=== PATIENT | female | born 2005 | race Two or more races ===

== ENCOUNTER 2023-12-31 08:14 | Outpatient (CLI) | payer OTHER | END 2023-12-31 08:19 | disposition home or self-care (01) | LOC: SONOGRAMA 08:14 | PROVIDERS: ATTEND Surgery | DX: R10.10 Upper abdominal pain, unspecified (principal) ==

== ENCOUNTER 2024-01-01 23:15 | Inpatient (IN) | payer OTHER ==
[~2024-01-01] VITALS: Ht 170.2 cm; Wt 58.1 kg
[2024-01-02] MEDS ORDERED: RINGERS SOLUTION,LACTATED 1,000 ML IV STA (00:42)
[2024-01-02] MEDS ORDERED: HYOSCYAMINE SULFATE 0.125 MG TAB.SUBL SL STA ×2 (00:43→05:49)
[2024-01-02] MEDS ORDERED: ONDANSETRON HCL 2 MG/ML VIAL IV STA (00:44)
[2024-01-02] MEDS ORDERED: FAMOtidine 10 MG/ML (4ML VIAL) IV PUSH STA (00:46)
[2024-01-02] MEDS ORDERED: PROMETHAZINE HCL 25 MG/ML AMPUL IM STA (00:47)
[2024-01-02] MEDS ORDERED: MEPERIDINE HCL 25 MG/ML AMPUL IM STA (00:47)
[2024-01-02 01:18] LABS: HEMATOCRIT 38.4 % (36.0-45.00); HEMOGLOBIN 12.5 g/dL (12.0-15.00); MEAN CORPUSCULAR HEMOGLOBIN 26.1 pg (27.00-32.0); MEAN CORPUSCULAR HGB CONC 32.6 g/dl (32.0-36.0); PLATELET COUNT 264 K/uL (150-450); RED CELL DISTRIBUTION WIDTH 14.2 % (11.5-14.5)
[2024-01-02 01:46] LABS: CALCIUM 10.1 mg/dL (8.5-10.1); CREATININE SERUM 0.74 mg/dL (0.55-1.02); GFR 100.05; POTASSIUM 3.65 mEq/L (3.5-5.1)
[2024-01-02] MEDS ORDERED: MEPERIDINE HCL/PF 50 MG/ML VIAL IM STA (06:52)
[2024-01-02] MEDS ORDERED: PROMETHAZINE HCL 50 MG/ML AMPUL IM STA (06:53)
[2024-01-02] MEDS ORDERED: PANTOPRAZOLE SODIUM 40 MG/VIAL VIAL IV SCH (09:58)
[2024-01-02] MEDS ORDERED: ONDANSETRON HCL 2 MG/ML VIAL IV PRN (10:00)
[2024-01-02] MEDS ORDERED: RINGERS SOLUTION,LACTATED 1,000 ML IV SCH (10:00)
[2024-01-02] MEDS ORDERED: MIDAZOLAM HCL 2 MG/2 ML VIAL IV STA (12:09)
[2024-01-02] MEDS ORDERED: DIPHENHYDRAMINE HCL 50 MG/ML VIAL 1ML IV STA (12:09)
[2024-01-02] MEDS ORDERED: fentaNYL CITRATE 50 MCG/ML AMPUL IV STA (12:10)
[2024-01-02] MEDS ORDERED: MAGNESIUM HYDROXIDE PO SCH (18:00)
[2024-01-02] MEDS ORDERED: LIDOCAINE PO SCH (18:00)
[2024-01-02] MEDS ORDERED: SIMETHICONE PO SCH (18:00)
[2024-01-02] MEDS ORDERED: ALUMINUM HYDROXIDE PO SCH (18:00)
[2024-01-03] MEDS ORDERED: MORPHINE SULFATE 4 MG/ML VIAL IV PRN (02:15)
[2024-01-03] MEDS ORDERED: MORPHINE SULFATE 4 MG/ML CARTRIDGE IV PRN (09:45)
[2024-01-03] MEDS ORDERED: MAG HYDROX/ALUMINUM HYD/SIMETH 30 ML BLIST.PACK PO ONE (14:59)
[2024-01-03] MEDS ORDERED: DEXTROSE 10 % IN WATER 500 ML IV SCH (15:15)
[2024-01-03] MEDS ORDERED: AA 4.25%/CAL/LYTES/DEXT 5% 1,000 ML PERIFERAL SCH (17:00)
[2024-01-03] MEDS ORDERED: LIDOCAINE HCL 20 MG/ML BLIST.PACK MM SCH (19:00)
[2024-01-03] MEDS ORDERED: DIPHENHYDRAMINE HCL 50 MG/ML VIAL 1ML IV ONE (20:30)
[2024-01-04 05:56] LABS: CALCIUM 9.6 mg/dL (8.5-10.1); CHOL HDL RATIO 2.3 (0-5.0); CREATININE SERUM 0.73 mg/dL (0.55-1.02); GFR 101.64; POTASSIUM 3.92 mEq/L (3.5-5.1)
[2024-01-04] MEDS ORDERED: LIDOCAINE HCL MM PRN (08:15)
[2024-01-04] MEDS ORDERED: DIATRIZOATE MEGLUMINE, SODIUM 30 ML BOTTLE PO ONE (08:30)
[2024-01-04] MEDS ORDERED: DIPHENHYDRAMINE HCL 50 MG/ML VIAL 1ML IV ONE (09:30)
[2024-01-04] MEDS ORDERED: METHYLPREDNISOLONE SOD SUCC 40 MG VIAL IV ONE (09:45)
[2024-01-04] MEDS ORDERED: SUCRALFATE 1 G TABLET PO SCH (17:12)
[2024-01-05] MEDS ORDERED: PROTONIX40 MG PO (09:00)
[2024-01-05] MEDS ORDERED: CARAFATE1 GM PO (09:00)
[2024-01-05] MEDS ORDERED: PEPCID20 MG PO (09:01)
== END 2024-01-05 11:41 | disposition home or self-care (01) | DRG 392 ==
LOC: ER 23:16 → PED 01-02 10:23 → SURH 01-02 10:23
PROVIDERS: ADMIT Colon & Rectal Surgery; ATTEND Colon & Rectal Surgery
PROC: 0DB58ZX Excision of Esophagus, Via Natural or Artificial Opening Endoscopic, Diagnostic (ICD-10-PCS; principal; 2024-01-02)
PROC: BW21YZZ Computerized Tomography (CT Scan) of Abdomen and Pelvis using Other Contrast (ICD-10-PCS; 2024-01-04)
PROC: BW24YZZ Computerized Tomography (CT Scan) of Chest and Abdomen using Other Contrast (ICD-10-PCS; 2024-01-04)
DX: K29.00 Acute gastritis without bleeding (principal); K20.90 Esophagitis, unspecified without bleeding; R13.10 Dysphagia, unspecified

== ENCOUNTER 2025-01-02 13:56 | Outpatient (CLI) | payer OTHER ==
[~2025-01-02 13:56] MED LIST: CARAFATE1 GM PO; PEPCID20 MG PO; PROTONIX40 MG PO
== END 2025-01-02 14:00 | disposition home or self-care (01) ==
LOC: RAD 13:56
PROVIDERS: ATTEND Physical Medicine & Rehabilitation
DX: M41.9 Scoliosis, unspecified (principal)

== ENCOUNTER → 2025-01-09 | Outpatient (CLI) | payer OTHER | END | disposition home or self-care (01) | LOC: MRI 15:09 | PROVIDERS: ATTEND Physical Medicine & Rehabilitation | DX: M54.50 Low back pain, unspecified (principal) | CPT/HCPCS: 72148 ==

== ENCOUNTER 2025-07-19 08:44 | Emergency (ER) | payer OTHER ==
[~2025-07-19] VITALS: Ht 167.6 cm; Wt 63.5 kg
[~2025-07-19 08:44] MED LIST changes: +IBU800 MG PO; +NORFLEX100MG PO
[2025-07-19 08:49] VITALS: BP 93/63; O2SAT 98
[2025-07-19 10:10] LABS: BASO % 0.6 % (0.1-1.2); EOS # 0.03 (0.04-0.54); EOS % 0.6 % (0.7-7.0); LYMPH # 1.73 (1.18-3.74); LYMPH % 33.3 % (19.3-53.1); MEAN PLATELET VOLUME 9.90 fl (9.4-12.4); MONO # 0.33 (0.24-0.82); MONO % 6.3 % (4.7-12.5); NEUT # 3.07 (1.56-6.13); NEUT % 59.0 % (34.0-71.1); RED CELL DISTRIBUTION WIDTH 14.2 % (11.6-14.4)
[2025-07-19 10:30] LABS: ERYTHROCYTE SEDIMENTATION RATE 12 mm/hr (0-20)
== END 2025-07-19 13:19 | disposition home or self-care (01) ==
LOC: ER 08:44
PROVIDERS: General Practice
DX: T78.40XA Allergy, unspecified, initial encounter (principal); R21 Rash and other nonspecific skin eruption; Z88.8 Allergy status to other drugs, medicaments and biological substances

== ENCOUNTER 2025-10-28 10:52 | Outpatient (CLI) | payer OTHER | END 2025-10-28 11:18 | disposition home or self-care (01) | LOC: RAD 10:52 | DX: J18.0 Bronchopneumonia, unspecified organism (principal) ==